=== PATIENT | female | born 1990 | race Caucasian/White ===

== ENCOUNTER 2017-06-29 12:31 | Observation (INO) | payer OTHER ==
[~2017-06-29] VITALS: Ht 154.9 cm; Wt 90.7 kg
[2017-06-29] MEDS ORDERED: PNV1TABL76 PO (13:27)
[2017-06-29] MEDS ORDERED: TERBUTALINE SULFATE 1MG/ML VIAL SUBCUT PRN (13:30)
[2017-06-29] MEDS ORDERED: LACTATED RINGERS 1,000 ML IV SCH (13:30)
== END 2017-06-29 14:29 | disposition home or self-care (01) ==
LOC: L&D 12:31
PROVIDERS: ADMIT Obstetrics & Gynecology; ATTEND Obstetrics & Gynecology
DX: O26.893 Other specified pregnancy related conditions, third trimester (principal); M54.9 Dorsalgia, unspecified; O21.2 Late vomiting of pregnancy; Z3A.36 36 weeks gestation of pregnancy
CPT/HCPCS: 96360; 96372; 99281; G0378; J3105; J7120